=== PATIENT | male | born 1980 | race Caucasian/White ===

== ENCOUNTER 2024-12-23 15:18 | Emergency (ER) | payer OTHER ==
[2024-12-23 15:58] LABS: BASOPHILS ABSOLUTE AUTO 0.02 10^3/uL (0.00-0.50); BASOPHILS PERCENT AUTO 0.4 % (0-1); EOSINOPHILS ABSOLUTE AUTO 0.12 10^3/uL (0.00-1.50); EOSINOPHILS PERCENT AUTO 2.5 % (0-6); IMMATURE GRAN ABSOLUTE AUTO 0.16 10^3/uL (0.00-0.49); IMMATURE GRAN PERCENT AUTO 3.3 % (0.0-4.9); LYMPHOCYTES ABSOLUTE AUTO 1.17 10^3/uL (0.60-5.00); LYMPHOCYTES PERCENT AUTO 23.9 % (24-44); MONOCYTES ABSOLUTE AUTO 0.70 10^3/uL (0.00-1.50); MONOCYTES PERCENT AUTO 14.3 % (0-10); NEUTROPHILS ABSOLUTE AUTO 2.72 x10^3/uL (1.80-8.00); NEUTROPHILS PERCENT AUTO 55.6 % (41-71); PLATELET COUNT,PLT 220 10^3/uL (150-400); RED BLOOD CELL COUNT 3.70 x10^6/uL (4.50-6.00); WHITE BLOOD CELL COUNT,WBC 4.9 10^3/uL (4.0-11.0)
[2024-12-23 16:11] LABS: ALANINE AMINOTRANSFERASE,ALT 49.0 U/L (12-78); ASPARTATE AMNIOTRANSFERASE,AST 74.0 U/L (15-37); BILIRUBIN TOTAL 1.3 mg/dL (0.0-1.0); BLOOD UREA NITROGEN,BUN 3.0 mg/dL (7-18); CARBON DIOXIDE,CO2 31.0 mmol/L (21-32); CHLORIDE,CL 98.0 mEq/L (98-106); CREATININE 1.0 mg/dL (0.7-1.3); EST CRCL DRUG DOSING (CG) 103.47 mL/min; ETHANOL BLOOD MEDICAL 116.0 mg/dL (0-3); GLUCOSE RANDOM 87.0 mg/dL (75-99); PROTEIN TOTAL,TP 6.4 g/dL (6.4-8.2); SODIUM,NA 139.0 mEq/L (136-145)
[2024-12-23 16:12] LABS: ESTIMATED GFR 95.0 mL/min (>=60); POTASSIUM,K 2.9 mEq/L (3.5-5.0)
[2024-12-23 16:23] LABS: AMPHETAMINES,URINE NEGATIVE (NEGATIVE); BARBITURATES,URINE NEGATIVE (NEGATIVE); MDMA (ECSTASY), URINE NEGATIVE (NEGATIVE); METHAMPHETAMINES,URINE NEGATIVE (NEGATIVE); OPIATES,URINE NEGATIVE (NEGATIVE); OXYCODONE,URINE NEGATIVE (NEGATIVE); PHENCYCLIDINE,URINE NEGATIVE (NEGATIVE); TCA,URINE NEGATIVE (NEGATIVE)
[2024-12-23] MEDS: Potassium Chloride 20 MEQ Tab.ER PO ONE (17:01)
== END 2024-12-23 21:45 ==
LOC: CC.ED 15:18
DX: E87.6 Hypokalemia (principal); R27.0 Ataxia, unspecified; R23.3 Spontaneous ecchymoses; I10 Essential (primary) hypertension; Z88.8 Allergy status to other drugs, medicaments and biological substances; Z79.899 Other long term (current) drug therapy; W01.198A Fall on same level from slipping, tripping and stumbling with subsequent striking against other object, initial encounter
CPT/HCPCS: 36415; 70450; 80053; 80305-QW; 80307; 83735; 85025; 86140; 99284; 99285; A9270-GY